=== PATIENT | female | born 1965 ===

== ENCOUNTER 2024-05-30 12:05 | Emergency (ER) | payer BC ==
[2024-05-30 12:53] LABS: BILIRUBIN,URINE NEGATIVE (NEGATIVE); COLOR,URINE YELLOW; GLUCOSE,URINE NEGATIVE (NEGATIVE); KETONES,URINE NEGATIVE (NEGATIVE); LEUKOCYTE ESTERASE,URINE MODERATE (NEGATIVE); NITRITE,URINE POSITIVE (NEGATIVE); OCCULT BLOOD,URINE MODERATE (NEGATIVE); PH,URINE 5.5 (5.0-8.0); PROTEIN,URINE NEGATIVE (NEGATIVE); UROBILINOGEN,URINE 0.2 EU/dL (<2.0)
[2024-05-30 13:09] LABS: APPEARANCE,URINE SLT CLOUDY
[2024-05-30 13:10] LABS: BACTERIA,URINE FEW (NEGATIVE); EPITHELIAL CELLS,URINE OCCASIONAL (NONE-FEW); MUCUS,URINE RARE (NONE-MOD); RBC,URINE 0-1 (0-2/HPF)
[2024-05-30] MEDS: Ondansetron 4 MG Tab.DIS PO ONE (13:19)
[2024-05-30] MEDS: Phenazopyridine 200 MG Tab PO ONE (13:19)
[2024-05-30] MEDS: Cefdinir 300 MG Cap PO ONE (13:19)
== END 2024-05-30 13:21 | disposition home or self-care (01) ==
LOC: MW.ED 12:05
DX: N39.0 Urinary tract infection, site not specified (principal); Z79.2 Long term (current) use of antibiotics; Z79.899 Other long term (current) drug therapy
CPT/HCPCS: 81001; 87086; 99283; A9270